=== PATIENT | male | born 1935 | race Caucasian/White ===

== ENCOUNTER 2016-09-26 02:45 | Emergency (ER) | payer OTHER ==
--- NOTE | 2016-09-26 02:57 | CPEKG ---
Heart Rate: 59 RR Interval: 1017 P-R Interval: 236 QRSD Interval: 116 QT Interval: 396 QTC Interval: 393 P [place]: 68 QRS [place]: -59 T Wave [place]: 77 EKG Severity - ABNORMAL ECG - EKG Impression: SINUS RHYTHM, Bradycardia HR 59, no prior EKG's for comparison EKG Impression: ATRIAL PREMATURE COMPLEX EKG Impression: FIRST DEGREE AV BLOCK EKG Impression: LAD, CONSIDER LEFT ANTERIOR FASCICULAR BLOCK Normal ST T waves. Electronically Signed By: Óscar Tesfaye 26-Sep-2016 03:29:57
[2016-09-26] MEDS ORDERED: ASPIRIN 81 MG CHEWABLE TAB ONE (03:01)
[2016-09-26] MEDS ORDERED: NITROGLYCERIN 0.4 MG BTL SL PRN (03:03)
[2016-09-26] MEDS ORDERED: ASPIRIN 81 MG CHEWABLE TAB PO ONE (03:03)
--- NOTE | 2016-09-26 03:12 | EDPHY ---
H & P Stated Complaint: chest pain Time Seen by Provider: 09/26/16 03:02 HPI/ROS: CHIEF COMPLAINT: awoke with discomfort in the chest at 2:00 a.m., pleuritic and worse with extension of the chest such as standing up straight HISTORY OF PRESENT ILLNESS: previously healthy 1-year-old male with known high cholesterol recently took a car drive from [place] to here some 2 weeks ago. He spends 6 months down there for the winter and took [address] up here, to 8 hour days of driving. There has been no other inability to speak of. No bracing of ankle or knee. He placed some tenderness some 10 days ago when he was back home in [place] at which time he felt well. However since returning to this area some 2 weeks ago while puttering around the yd he has felt somewhat fatigued more so than he should be. Furthermore, earlier in the afternoon he had a sense of transient lightheadedness lasting seconds without any palpitations or chest discomfort. He felt well when he went to bed. Uneventfully evening this evening, feeling well to take his meals. He took to bed around 9:30 p.m.. He is also concerned at 2:00 a.m. with a abrupt onset of left anterior axillary line chest pain at approximately rib 5./6 that has been persistent since that time. There is no associated nausea or diaphoresis. That was however worse with taking deep breath though steady in the 1st place. Was also worse when he did things such as twisting bending get a side of a car or undressing or standing up straight. He does not recall anything to strain the ribs. He notes that when he presses on the area or when I press on the area for that matter that is not sensitive to the touch. He is not taking any medications in attempt to relieve the discomfort. He is currently not on aspirin He has no risk factors for DVT or PE He has no risk factors for aortic dissection As to cardiac disease there is no early onset cardiac disease in his family. He was a smoker but did last smoked in the 1970s. He is not known to be hypertensive nor does he have diabetes but he does have high cholesterol. REVIEW OF SYSTEMS: Constitutional: No fever, no chills. Eyes: No discharge ENT: No sore throat. Cardiovascular: See above. Respiratory: No cough, shortness of breath, or wheezing. However the discomfort is pleuritic in nature Gastrointestinal: No nausea vomiting or diarrhea. No abdominal pain. Genitourinary: No hematuria or frequency. Musculoskeletal: No back pain. Skin: No rashes. Neurological: No headache. 10 point ROS otherwise negative Source: Patient Exam Limitations: No limitations - Personal History Current Tetanus Diphtheria and Acellular Pertussis (TDAP): Yes Tetanus Vaccine Date: 2006 - Medical/Surgical History Hx Asthma: No Hx Chronic Respiratory Disease: No Hx Diabetes: No Hx Cardiac Disease: No Hx Renal Disease: No Hx Cirrhosis: No Hx Alcoholism: No Hx HIV/AIDS: No Hx Splenectomy or Spleen Trauma: No - Social History Smoking Status: Former smoker Alcohol Use: None Drug Use: None - Physical Exam Exam: General Appearance: Alert, no distress. Afebrile. Normal phonation. No respiratory distress. Well tanned disease from [place] Eyes: Pupils equal and round no pallor or injection. No icterus ENT, Mouth: Mucous membranes moist. Pharynx without erythema or exudate. TM Clear. Neck: No adenopathy. Supple. No JVD. Trachea in midline. Respiratory: There are no retractions, lungs are clear to auscultation. Chest wall: Nontender to palpation. No reproducible chest pain or chest wall tenderness Cardiovascular: Regular rate and rhythm. Without murmur Abdomen: Soft and nontender, no masses, bowel sounds normal. Femoral pulses equal. Neurological: Ox3. No motor weakness. Sensation intact. Gait nl. Skin: Warm and dry, no rashes. Musculoskeletal: No joint swelling. Extremities: No edema. Homans sign negative. No cords. Psychiatric: Normal affect. Constitutional: Initial Vital Signs Heart Rate 70 09/26/16 02:51 Respiratory Rate 19 09/26/16 02:51 Blood Pressure 156/85 H 09/26/16 02:51 O2 Sat (%) 94 09/26/16 02:51 O2 Delivery Mode Room Air Allergies/Adverse Reactions: No Known Allergies Allergy (Unverified 04/11/09 15:31) Home Medications: Medication Instructions Recorded Acetaminophen [Tylenol Tablet] 500 mg PO Q4H PRN 09/16/12 Capsule Filler Completed 09/15/12 09/16/12 Simvastatin 20 mg PO DAILY 09/16/12 Medical Decision Making - Diagnostics EKG Interpretation: EKG: Interpreted by me contemporaneously. Normal sinus rhythm. PACs. First-degree block. Left anterior hemiblock Heart rate [59 ]. QTc [394 ] STT segment: Normal T Waves: Normal Summary: Sinus bradycardia with a heart rate of 59 with first-degree block with occasional PACs. No signs of ischemia Imaging: I viewed and interpreted images myself ED Course/Re-evaluation: Patient given standard dose 324 mg of ASA chew Given a tablet of nitro and symptoms resolved. Placed on 1 inch of nitropaste Blood pressure dropped slowly down to 95 systolic, this nitropaste removed. Initial lab studies showed: Undetectable troponin Normal D-dimer Mild anemia - 1 gm lower than last blood draw in Jan 2016 - Hct = 36.2 now vs 39.5 then Stable electrolyte panel. Pain should remain asymptomatic at rest. His heart rate would drift into the mid to low 40s at times while he slept. No recurrence of symptomatology. Follow-up 3 hour troponin was also undetectable at less than 0.012. case discussed with Dr. Power at [facility] accepted the patient in transfer. Once bed assignment is arrived we will call [facility] for transfer Differential Diagnosis: Differential diagnosis includes but is not limited to the following: ACS, myocardial infarction, pneumothorax, pleurisy, pulmonary embolus, aortic dissection, anxiety, muscle strain. - Data Points Laboratory Results: Laboratory Results 09/26/16 03:05 09/26/16 03:05 09/26/16 09/26/16 09/26/16 06:06 03:05 03:05 WBC RBC Hgb Hct MCV MCH MCHC RDW Plt Count MPV Neut % (Auto) Lymph % (Auto) [place] % (Auto) Eos % (Auto) Baso % (Auto) Nucleat RBC Rel Count Absolute Neuts (auto) Absolute Lymphs (auto) Absolute Monos (auto) Absolute Eos (auto) Absolute Basos (auto) Absolute Nucleated RBC Immature Gran % Immature Gran # D-Dimer 0.38 ug/mLFEU ug/mLFEU (0.00-0.50) Sodium 139 mEq/L mEq/L (134-144) Potassium 4.1 mEq/L mEq/L (3.5-5.2) Chloride 101 mEq/L mEq/L (97-110) Carbon Dioxide 24 mEq/l mEq/l (22-31) Anion Gap 14 mEq/L mEq/L (8-16) BUN 18 mg/dL mg/dL (7-23) Creatinine 0.8 mg/dL mg/dL (0.7-1.3) Estimated GFR > 60 Glucose 122 mg/dL H mg/dL (70-100) Calcium 9.1 mg/dL mg/dL (8.5-10.4) Troponin I 0.012 ng/mL ng/mL < 0.012 ng/mL ng/mL (0-0.034) (0-0.034) NT-Pro-B Natriuret Pep 202 pg/mL pg/mL (0-450) 09/26/16 03:05 WBC 6.46 10^3/uL 10^3/uL (3.80-9.50) RBC 4.04 10^6/uL L 10^6/uL (4.40-6.38) Hgb 12.5 g/dL L g/dL (13.7-17.5) Hct 36.2 % L % (40.0-51.0) MCV 89.6 fL fL (81.5-99.8) MCH 30.9 pg pg (27.9-34.1) MCHC 34.5 g/dL g/dL (32.4-36.7) RDW 12.9 % % (11.5-15.2) Plt Count 155 10^3/uL 10^3/uL (150-400) MPV 8.8 fL fL (8.7-11.7) Neut % (Auto) 64.8 % % (39.3-74.2) Lymph % (Auto) 16.7 % % (15.0-45.0) [place] % (Auto) 14.2 % H % (4.5-13.0) Eos % (Auto) 3.3 % % (0.6-7.6) Baso % (Auto) 0.5 % % (0.3-1.7) Nucleat RBC Rel Count 0.0 % % (0.0-0.2) Absolute Neuts (auto) 4.19 10^3/uL 10^3/uL (1.70-6.50) Absolute Lymphs (auto) 1.08 10^3/uL 10^3/uL (1.00-3.00) Absolute Monos (auto) 0.92 10^3/uL H 10^3/uL (0.30-0.80) Absolute Eos (auto) 0.21 10^3/uL 10^3/uL (0.03-0.40) Absolute Basos (auto) 0.03 10^3/uL 10^3/uL (0.02-0.10) Absolute Nucleated RBC 0.00 10^3/uL 10^3/uL (0-0.01) Immature Gran % 0.5 % % (0.0-1.1) Immature Gran # 0.03 10^3/uL 10^3/uL (0.00-0.10) D-Dimer Sodium Potassium Chloride Carbon Dioxide Anion Gap BUN Creatinine Estimated GFR Glucose Calcium Troponin I NT-Pro-B Natriuret Pep Medications Given: Discontinued Medications Aspirin (Aspirin) 324 mg PO EDNOW ONE Stop: 09/26/16 03:04 Last Admin: 09/26/16 03:03 Dose: 324 mg Nitroglycerin (Nitrostat) 0.4 mg SL Q5M PRN PRN Reason: Chest Pain Stop: 09/26/16 03:14 Last Admin: 09/26/16 03:18 Dose: 0.4 mg Nitroglycerin (Nitro-Bid 2%) 0.5 inch TP EDNOW ONE Stop: 09/26/16 03:19 Last Admin: 09/26/16 03:27 Dose: 0.5 inch Departure - Departure Referrals: Patient,NotPresent [Primary Care Provider] - As per Instructions
[2016-09-26] MEDS ORDERED: NITROGLYCERIN 0.4 MG BTL SL ONE (03:16)
[2016-09-26] MEDS ORDERED: NITROGLYCERIN 2% 1 GM PACKET TP ONE (03:18)
--- NOTE | 2016-09-26 03:22 | CPEKG ---
Heart Rate: 69 RR Interval: 870 P-R Interval: 236 QRSD Interval: 118 QT Interval: 404 QTC Interval: 433 P [place]: 53 QRS [place]: -59 T Wave [place]: 72 EKG Severity - ABNORMAL ECG - EKG Impression: SINUS RHYTHM, Bradycardi, HR. EKG Impression: ATRIAL PREMATURE COMPLEX EKG Impression: FIRST DEGREE AV BLOCK EKG Impression: LAD, CONSIDER LEFT ANTERIOR FASCICULAR BLOCK - No ischemia, Though bradycardia EKG Impression: resolved. Electronically Signed By: Óscar Tesfaye 26-Sep-2016 03:29:46
[2016-09-26 03:28] LABS: % IMMATURE GRANULYOCYTES 0.5 % (0.0-1.1); ABSOLUTE IMMATURE GRANULOCYTES 0.03 10^3/uL (0.00-0.10); ADD DIFF? NO; ADD MORPH? NO; ADD SCAN? NO; ATYPICAL LYMPHOCYTE FLAG 20 (0-99); FRAGMENT RBC FLAG 0 (0-99); HEMATOCRIT 36.2 % (40.0-51.0); HEMOGLOBIN 12.5 g/dL (13.7-17.5); LEFT SHIFT FLG 0 (0-99); LIPEMIA HEMOLYSIS FLAG 90 (0-99); MEAN CELL HEMOGLOBIN 30.9 pg (27.9-34.1); MEAN CELL HEMOGLOBIN CONCENTR. 34.5 g/dL (32.4-36.7); MEAN CELL VOLUME 89.6 fL (81.5-99.8); MEAN PLATELET VOLUME 8.8 fL (8.7-11.7); PLATELET CLUMPS FLAG 0 (0-99); PLATELET COUNT 155 10^3/uL (150-400); RED BLOOD CELL COUNT 4.04 10^6/uL (4.40-6.38); RED CELL DISTRIBUTION WIDTH 12.9 % (11.5-15.2)
[2016-09-26 03:42] LABS: ANION GAP 14 mEq/L (8-16); CALCIUM 9.1 mg/dL (8.5-10.4); CARBON DIOXIDE 24 mEq/l (22-31); CHLORIDE 101 mEq/L (97-110); CREATININE 0.8 mg/dL (0.7-1.3); GLOMERULAR FILTRATION RATE > 60; GLUCOSE 122 mg/dL (70-100); POTASSIUM 4.1 mEq/L (3.5-5.2); SODIUM 139 mEq/L (134-144)
[2016-09-26 03:54] LABS: TROPONIN I < 0.012 ng/mL (0-0.034)
[2016-09-26 04:04] VITALS: O2SAT 95
[2016-09-26 07:43] VITALS: PULSE 45
[2016-09-26 07:45] VITALS: BP 122/57; RESP 16; TEMP 97.9
== END 2016-09-26 08:12 | disposition short-term general hospital (02) ==
LOC: CED 02:45
DX: R07.2 Precordial pain (principal); I25.2 Old myocardial infarction; Z86.718 Personal history of other venous thrombosis and embolism; Z87.891 Personal history of nicotine dependence; Z95.5 Presence of coronary angioplasty implant and graft
CPT/HCPCS: 71010-PO; 80048-PO; 83880-PO; 84484-PO; 85025-PO; 85378-PO

== ENCOUNTER 2016-10-05 11:30 | Day surgery (SDC) | payer OTHER ==
[2016-10-05] MEDS ORDERED: NS 1,000 ML IV ONE (11:33)
[2016-10-05] MEDS ORDERED: diphenhydrAMINE 25 MG CAP PO ONE ×2 (11:33→12:02)
[2016-10-05] MEDS ORDERED: FAMOTIDINE 20 MG TAB PO ONE (11:33)
[2016-10-05] MEDS ORDERED: ASPIRIN EC 325 MG TAB PO ONE ×2 (11:33→12:02)
[2016-10-05] MEDS ORDERED: DIAZEPAM 5 MG TAB PO ONE (11:33)
--- NOTE | 2016-10-05 11:53 | CPEKG ---
Heart Rate: 46 RR Interval: 1304 P-R Interval: 236 QRSD Interval: 108 QT Interval: 452 QTC Interval: 396 P [place]: 40 QRS [place]: -56 T Wave [place]: 50 EKG Severity - ABNORMAL ECG - EKG Impression: SINUS BRADYCARDIA EKG Impression: SUPRAVENTRICULAR BIGEMINY EKG Impression: FIRST DEGREE AV BLOCK EKG Impression: LAD, CONSIDER LEFT ANTERIOR FASCICULAR BLOCK Electronically Signed By: Hannah Robins 05-Oct-2016 17:24:24
[2016-10-05] MEDS ORDERED: FAMOTIDINE 20 MG TAB ONE (12:02)
[2016-10-05] MEDS ORDERED: DIAZEPAM 5 MG TAB ONE (12:03)
[2016-10-05 12:06] LABS: % IMMATURE GRANULYOCYTES 0.6 % (0.0-1.1); ABSOLUTE IMMATURE GRANULOCYTES 0.03 10^3/uL (0.00-0.10); ADD DIFF? NO; ADD MORPH? NO; ADD SCAN? NO; ATYPICAL LYMPHOCYTE FLAG 20 (0-99); FRAGMENT RBC FLAG 0 (0-99); HEMATOCRIT 37.3 % (40.0-51.0); HEMOGLOBIN 12.7 g/dL (13.7-17.5); LEFT SHIFT FLG 0 (0-99); LIPEMIA HEMOLYSIS FLAG 90 (0-99); MEAN CELL HEMOGLOBIN 30.7 pg (27.9-34.1); MEAN CELL VOLUME 90.1 fL (81.5-99.8); MEAN PLATELET VOLUME 8.6 fL (8.7-11.7); PLATELET CLUMPS FLAG 0 (0-99); PLATELET COUNT 228 10^3/uL (150-400); RED BLOOD CELL COUNT 4.14 10^6/uL (4.40-6.38); RED CELL DISTRIBUTION WIDTH 12.6 % (11.5-15.2)
[2016-10-05 12:15] LABS: INR 1.09 (0.83-1.16)
[2016-10-05] MEDS ORDERED: fentaNYL 100 MCG/2 ML INJ ONE (12:28)
[2016-10-05] MEDS ORDERED: LIDOCAINE 1% 30 ML SDV ONE (12:28)
[2016-10-05] MEDS ORDERED: VERAPAMIL 5 MG/2 ML VIAL ONE (12:29)
[2016-10-05] MEDS ORDERED: HEPARIN 10,000 UNIT/10 ML MDV ONE (12:29)
[2016-10-05] MEDS ORDERED: MIDAZOLAM 2 MG/2 ML VIAL ONE (12:29)
[2016-10-05] MEDS ORDERED: IOPAMIDOL (ISOVUE-370) 150 ML BTL IV ONE (12:29)
[2016-10-05 12:39] LABS: ANION GAP 9 mEq/L (8-16); CALCIUM 9.3 mg/dL (8.5-10.4); CARBON DIOXIDE 24 mEq/l (22-31); CHLORIDE 106 mEq/L (97-110); CHOLESTEROL 127 mg/dL (140-220); CHOLESTEROL/HDL RATIO 3.26 RATIO (1.00-4.97); CREATININE 0.8 mg/dL (0.7-1.3); GLOMERULAR FILTRATION RATE > 60; GLUCOSE 108 mg/dL (70-100); HIGH DENSITY LIPOPROTEIN 39 mg/dL (40-65); LOW DENSITY LIPOPROTEIN 78 mg/dL (80-100); MAGNESIUM 2.1 mg/dL (1.6-2.3); NON-HIGH DENSITY LIPOPROTEIN 88 mg/dL (90-129); POTASSIUM 4.4 mEq/L (3.5-5.2); SODIUM 139 mEq/L (134-144); TRIGLYCERIDE 54 mg/dL (40-150); VERY LOW DENSITY LIPOPROTEINS 10 mg/dL (8-25)
--- NOTE | 2016-10-05 16:00 | PDDXCAT ---
Diagnostic Cath Note - . Date: 10/05/16 [place] Equipment Operator: He Indication: other (Chest pain, abnormal nuclear stress test, and risk factors for CAD.) - Procedure Access: right wrist Procedure: left heart catheterization, coronary angiography, left ventriculogram - Materials Left Heart Cath size: 6F Left Heart Cath materials: other (TRAP 4.0, JL 3.5, and Pigtail) - Findings-Left Heart Catheterization LM: Normal. LAD: Minimal irregularities. LCX: Minimal irregularities. RCA: Minimal irregularities. LVEF: 60% Wall motion: Normal Estimated blood loss: <50ml Closure method: TR Band Assessment: 1) Normal LV systolic function. 2) Mild coronary atherosclerosis as described above. Plan: Aggressive secondary prevention.
== END 2016-10-05 19:03 | disposition home or self-care (01) ==
LOC: FCATH 11:30
PROVIDERS: ATTEND Internal Medicine Interventional Cardiology
PROC: B2111ZZ Fluoroscopy of Multiple Coronary Arteries using Low Osmolar Contrast (ICD-10-PCS; principal; 2016-10-05)
PROC: 4A023N7 Measurement of Cardiac Sampling and Pressure, Left Heart, Percutaneous Approach (ICD-10-PCS; principal; 2016-10-05)
PROC: B2151ZZ Fluoroscopy of Left Heart using Low Osmolar Contrast (ICD-10-PCS; principal; 2016-10-05)
DX: R07.9 Chest pain, unspecified (principal); R94.39 Abnormal result of other cardiovascular function study; E78.5 Hyperlipidemia, unspecified
CPT/HCPCS: 93005; 93458; C1769; J1644; J2250; J3010; Q9967

== ENCOUNTER → 2016-11-18 | Outpatient (CLI) | payer OTHER | LOC: SBRMNEURO 21:00 | PROVIDERS: ATTEND Internal Medicine Pulmonary Disease | DX: G47.39 Other sleep apnea (principal); G47.33 Obstructive sleep apnea (adult) (pediatric); G47.61 Periodic limb movement disorder ==